=== PATIENT | male | born 1955 | race African-American/Black ===

== ENCOUNTER 2021-05-22 20:00 | Inpatient (IN) | payer MEDICARE, OTHER ==
[~2021-05-22] VITALS: Ht 175.3 cm; Wt 121.6 kg
[2021-05-22] MEDS ORDERED: ONDANSETRON HCL 4MG/2ML INJ IV ONE (20:45)
[2021-05-22] MEDS ORDERED: SODIUM CHLORIDE 0.9% 1,000 ML IV ONE ×2 (20:45→23:15)
[2021-05-22 22:17] LABS: BASOPHILS % 0.2 % (0.0-2.0); CHLORIDE 100 mEq/L (98-107); HEMATOCRIT. 35.4 % (42.0-52.0); HEMOGLOBIN. 11.7 g/dL (14.0-18.0); LYMPHOCYTES % 14.2 % (20.0-50.0); MEAN CORPUSCULAR HEMOGLOBIN 29.4 pg (28.0-32.0); MEAN CORPUSCULAR VOLUME 89.4 fL (80.0-94.0); MEAN PLATELET VOLUME 8.2 fl (7.4-10.4); MONOCYTES % 5.3 % (2.0-8.0); NEUTROPHILS % 80.3 % (40.0-76.0); PLATELET 211 x1000/uL (130-400); RED BLOOD CELL COUNT 3.96 mill/uL (4.7-6.1)
[2021-05-22] MEDS ORDERED: MORPHINE SULFATE 4 MG/ML CPJ (NOT FOR IM USE) IV ONE (22:30)
[2021-05-23] MEDS ORDERED: CEFTRIAXONE 1 G PREMIX 50 ML IV ONE (01:00)
[2021-05-23] MEDS ORDERED: METRONIDAZOLE 500 MG PREMIX 100 ML IV ONE (01:00)
[2021-05-23] MEDS ORDERED: SODIUM CHLORIDE 0.9% 1,000 ML IV ONE (01:00)
[2021-05-23] MEDS ORDERED: METRONIDAZOLE 500MG TABLET PO SCH (01:45)
[2021-05-23 03:25] LABS: CLARITY URINE CLOUDY (CLEAR); COLOR URINE YELLOW (YELLOW); KETONES URINE NEGATIVE (NEGATIVE); LEUKOCYTE ESTERASE URINE NEGATIVE (NEGATIVE); NITRITE URINE NEGATIVE (NEGATIVE); OCCULT BLOOD URINE NEGATIVE (NEGATIVE); PROTEIN URINE TRACE (NEGATIVE); SPECIFIC GRAVITY URINE 1.012 (1.005-1.030); UROBILINOGEN URINE 0.2 E.U./dL (0.2-1.0)
[2021-05-23] MEDS ORDERED: CLONIDINE 0.1MG TABLET PO PRN (10:00)
[2021-05-23] MEDS ORDERED: MORPHINE SULFATE 2 MG/ML CPJ (NOT FOR IM USE) IV PRN (10:00)
[2021-05-23] MEDS: SODIUM CHLORIDE 0.9% 1,000 ML IV SCH (10:00)
[2021-05-23] MEDS ORDERED: ACETAMINOPHEN 325MG TABLET PO PRN (10:00)
[2021-05-23] MEDS ORDERED: DIPHENHYDRAMINE 50MG/ML VIAL IV PRN (10:00)
[2021-05-23] MEDS ORDERED: ONDANSETRON HCL 4MG/2ML INJ IV PRN (10:00)
[2021-05-23] MEDS ORDERED: PIPERACILLIN/TAZ 3.375G PREMIX 50 ML IV SCH ×2 (10:00→14:00)
[2021-05-23] MEDS: PANTOPRAZOLE SODIUM 40 MG/VIAL IV SCH (10:09)
[2021-05-23] MEDS ORDERED: NALOXONE HCL 0.4MG/ML VIAL IV PRN (10:30)
[2021-05-23 21:40] VITALS: BP 130/90
[2021-05-24] VITALS: BP 128/80
[2021-05-24] MEDS: ACETAMINOPHEN 325MG TABLET PO PRN ×2 (00:13→22:27)
[2021-05-24] MEDS ORDERED: LISI-186 MT (01:08)
[2021-05-24] MEDS ORDERED: TRAZ-251 MT (01:08)
[2021-05-24] MEDS: SODIUM CHLORIDE 0.9% 1,000 ML IV SCH ×4 (01:50→20:22)
[2021-05-24] MEDS: PIPERACILLIN/TAZOBACTAM 3.375 G in DEXTROSE 5% WATER 50 ML IV SCH ×4 (01:50→20:21)
[2021-05-24] MEDS: ZOLPIDEM TARTRATE 5MG TABLET PO PRN (02:23)
[2021-05-24 03:50] VITALS: BP 122/66
[2021-05-24 07:21] LABS: HEMATOCRIT. 37.3 % (42.0-52.0); HEMOGLOBIN. 12.2 g/dL (14.0-18.0); MEAN CORPUSCULAR HEMOGLOBIN 29.9 pg (28.0-32.0); MEAN CORPUSCULAR VOLUME 91.2 fL (80.0-94.0); MEAN PLATELET VOLUME 7.8 fl (7.4-10.4); PLATELET 191 x1000/uL (130-400); RED BLOOD CELL COUNT 4.09 mill/uL (4.7-6.1); RED CELL DISTRIBUTION WIDTH 14.6 % (11.6-14.6)
[2021-05-24 08:00] VITALS: BP 135/85
[2021-05-24 08:08] LABS: CHLORIDE 109 mEq/L (98-107)
[2021-05-24 12:00] VITALS: BP 120/71
[2021-05-24 14:18] LABS: PLATELET ESTIMATE NORMAL
[2021-05-24 16:00] VITALS: BP 137/81
[2021-05-24 20:00] VITALS: BP 139/89
[2021-05-25] VITALS: BP 116/78
[2021-05-25 04:00] VITALS: BP 144/85
[2021-05-25] MEDS: PIPERACILLIN/TAZOBACTAM 3.375 G in DEXTROSE 5% WATER 50 ML IV SCH ×3 (05:09→20:43)
[2021-05-25 06:21] LABS: CHLORIDE 105 mEq/L (98-107)
[2021-05-25 06:30] LABS: HEMATOCRIT. 41.6 % (42.0-52.0); HEMOGLOBIN. 13.6 g/dL (14.0-18.0); MEAN CORPUSCULAR HEMOGLOBIN 29.7 pg (28.0-32.0); MEAN CORPUSCULAR VOLUME 90.7 fL (80.0-94.0); PLATELET 224 x1000/uL (130-400); RED BLOOD CELL COUNT 4.59 mill/uL (4.7-6.1)
[2021-05-25 08:18] VITALS: BP 136/73
[2021-05-25] MEDS: PANTOPRAZOLE SODIUM 40 MG/VIAL IV SCH (08:57)
[2021-05-25] MEDS: SODIUM CHLORIDE 0.9% 1,000 ML IV SCH ×2 (12:00→20:43)
[2021-05-25 12:16] VITALS: BP 112/62
[2021-05-25] MEDS ORDERED: MAGNESIUM 2 G PREMIX 50 ML IV NR (14:30)
[2021-05-25 15:47] VITALS: BP 100/67
[2021-05-25 17:26] LABS: PLATELET ESTIMATE NORMAL
[2021-05-25 20:00] VITALS: BP 153/103
[2021-05-25] MEDS: ZOLPIDEM TARTRATE 5MG TABLET PO PRN (21:12)
[2021-05-26] VITALS: BP 129/79
[2021-05-26 04:00] VITALS: BP 136/78
[2021-05-26] MEDS: PIPERACILLIN/TAZOBACTAM 3.375 G in DEXTROSE 5% WATER 50 ML IV SCH ×3 (05:35→20:44)
[2021-05-26 08:00] VITALS: BP 145/90
[2021-05-26 08:12] LABS: CHLORIDE 104 mEq/L (98-107)
[2021-05-26 08:28] LABS: HEMATOCRIT. 39.2 % (42.0-52.0); HEMOGLOBIN. 12.8 g/dL (14.0-18.0); MEAN CORPUSCULAR HEMOGLOBIN 29.6 pg (28.0-32.0); MEAN CORPUSCULAR VOLUME 90.6 fL (80.0-94.0); PLATELET 207 x1000/uL (130-400); RED BLOOD CELL COUNT 4.33 mill/uL (4.7-6.1); RED CELL DISTRIBUTION WIDTH 14.5 % (11.6-14.6)
[2021-05-26] MEDS: PANTOPRAZOLE SODIUM 40 MG/VIAL IV SCH (09:51)
[2021-05-26] MEDS: SODIUM CHLORIDE 0.9% 1,000 ML IV SCH ×3 (09:52→20:45)
[2021-05-26 12:00] VITALS: BP 103/53
[2021-05-26 16:00] VITALS: BP 115/71
[2021-05-26 20:00] VITALS: BP 144/86
[2021-05-26 23:32] LABS: PLATELET ESTIMATE NORMAL
[2021-05-27] VITALS: BP 148/77
[2021-05-27 04:00] VITALS: BP 138/88
[2021-05-27] MEDS: PIPERACILLIN/TAZOBACTAM 3.375 G in DEXTROSE 5% WATER 50 ML IV SCH (05:27)
[2021-05-27 07:30] LABS: CHLORIDE 107 mEq/L (98-107)
[2021-05-27 07:43] LABS: HEMOGLOBIN. 12.6 g/dL (14.0-18.0); MEAN CORPUSCULAR HEMOGLOBIN 29.5 pg (28.0-32.0); MEAN CORPUSCULAR VOLUME 91.6 fL (80.0-94.0); PLATELET 178 x1000/uL (130-400); RED BLOOD CELL COUNT 4.26 mill/uL (4.7-6.1); RED CELL DISTRIBUTION WIDTH 14.5 % (11.6-14.6)
[2021-05-27 08:00] VITALS: BP 160/89
[2021-05-27] MEDS: PANTOPRAZOLE SODIUM 40 MG/VIAL IV SCH (09:01)
[2021-05-27 11:40] VITALS: BP 150/92
[2021-05-27 12:00] VITALS: BP 150/92
[2021-05-27 18:51] LABS: PLATELET ESTIMATE NORMAL
== END 2021-05-27 14:00 | disposition home or self-care (01) | DRG 391 ==
LOC: ER 20:00 → MICUSO 05-23 00:58 → 8WST 05-23 21:40
PROVIDERS: ADMIT Internal Medicine; ATTEND Internal Medicine
DX: K57.32 Diverticulitis of large intestine without perforation or abscess without bleeding (principal); N17.0 Acute kidney failure with tubular necrosis; J98.11 Atelectasis; I12.9 Hypertensive chronic kidney disease with stage 1 through stage 4 chronic kidney disease, or unspecified chronic kidney disease; N18.9 Chronic kidney disease, unspecified; I48.91 Unspecified atrial fibrillation; N28.1 Cyst of kidney, acquired; E66.9 Obesity, unspecified; Z20.822 Contact with and (suspected) exposure to COVID-19; K21.9 Gastro-esophageal reflux disease without esophagitis; Z68.39 Body mass index [BMI] 39.0-39.9, adult
CPT/HCPCS: 36415; 74176; 80048; 80053; 81003; 83605; 83735; 85007; 85025; 85027; 87077; 87426; 93005; 99291; C9113; J0696; J2270; J2405; J2543; J3475; J3490; J7030; J7040; J7060